=== PATIENT | female | born 1985 | race African-American/Black ===

== ENCOUNTER 2021-06-14 09:39 | Emergency (ER) | payer OTHER, SELFPAY ==
--- NOTE | 2021-06-14 09:45 | ED.DENTAL ---
HPI - Dental/Oral General Chief complaint: Dental/Oral Stated complaint: gum sore Time Seen by Provider: 06/14/21 10:00 Source: patient Mode of arrival: ambulatory Limitations: no limitations History of Present Illness HPI Narrative: 36-year-old female presents concern for dental pain. She reports front tooth is loose, with sore surrounding gumline and pain below her nose. She reports symptoms worsened yesterday. Reports she has been wearing a partial denture around that tooth and it has been getting loose for some time. She denies fever, difficulty swallowing, nausea or vomiting. Reports she is trying to find a dentist take her insurance. MD Complaint: tooth pain Location: Tooth # (9) Severity scale (1-10): 9 Related Data Home Medications Medication Instructions Recorded Confirmed cetirizine 10 mg PO DAILY 06/14/21 06/14/21 ergocalciferol (vitamin D2) 1,250 mcg PO WEEKLY 06/14/21 06/14/21 fluoxetine 20 mg PO DAILY 06/14/21 06/14/21 fluticasone propionate 50 mcg INTRANASAL DAILY 06/14/21 06/14/21 montelukast 10 mg PO DAILY 06/14/21 06/14/21 sertraline 50 mg PO DAILY 06/14/21 06/14/21 Allergies Allergy/AdvReac Type Severity Reaction Status Date / Time No Known Allergies Allergy Verified 06/14/21 09:59 Review of Systems Review of Systems: CONSTITUTIONAL: Denies malaise, chills, sweats, or fever. EYES: Denies visual changes ENT: Denies rhinorrhea, congestion, sinus pain, otalgia or sore throat. Reports top frontal dental pain and gum swelling CARDIOVASCULAR: Denies chest pain, palpitations RESPIRATORY: Denies cough or dyspnea. SKIN: Denies rash or itching. MUSCULOSKELETAL: Denies myalgia. NEUROLOGIC: Denies numbness, weakness, or headache. All systems reviewed & are unremarkable except as noted in HPI and below PMFSH Comments At time of signature, agree with nursing past medical, surgical, social and family history. There is no relevant family history pertinent to the presenting complaint Exam Narrative: GENERAL: Well-appearing, well-nourished, and in no acute distress. HEAD: Normocephalic, atraumatic. EYES: PERRLA, sclera clear ENT: Nares clear, turbinates pink, no rhinorrhea or epistaxis. Mucous membranes moist. Oropharynx without erythema or lesions. Tonsils not enlarged and without exudate. Top front missing teeth, no broken teeth. Tooth #9 loose with gingival erythema NECK: Supple. No lymphadenopathy. CHEST: No respiratory distress. Speaks in full sentences. HEART: Regular rate and rhythm. SKIN: Warm, dry, no visible rash. NEURO: Alert and oriented x3. PSYCH: Normal mood and affect Course Course Emergency Course: Patient is aware of diagnosis, understands and agrees to treatment plan. Anticipatory guidance given. Patient agrees to follow-up as directed and is aware of reasons to seek care at the emergency department. Portions of this record may have been created with voice recognition software Level of Care: Express Care Visit Vital Signs Vital signs: Reviewed. MDM - Dental/Oral MDM Narrative Medical decision making narrative: Patients pain and complaint coupled with physical findings are consistant with dentalgia. There are no focal signs of space occupying lesions that are compromising to the airway; no dysphagia, odynophagia, dysphonia, or dyspnea. No uvular deviation or soft palate edema. Patient is non-toxic appearing. The floor of the mouth is soft with no signs of Rudolph's Angina; no induration below mandible, no neck pain. Patient is without trismus or drooling and able to swallow secretions. Patient is felt appropriate for discharge home with dental follow up. Differential Diagnosis Differential diagnosis: Likely gingival abscess, dental caries, toothache, dental abscess, fracture of tooth and aphthous ulcer Critical Care Time Critical Care Time Critical Care Time: No Discharge Plan Discharge Clinical Impression: Dental abscess Patient Disposition: Home, Self-Care Condit
[2021-06-14 09:53] VITALS: BP 145/92; PULSE 119; RESP 16; TEMP 36.5; O2SAT 99
== END 2021-06-14 10:13 | disposition home or self-care (01) ==
PROVIDERS: Emergency Provider Nurse Practitioner; PCP Family Medicine
DX: K04.7 Periapical abscess without sinus (principal); F41.9 Anxiety disorder, unspecified; F32.A Depression, unspecified
CPT/HCPCS: 99213; G0463

== ENCOUNTER 2021-08-26 13:57 | Inpatient (IN) | payer OTHER, SELFPAY ==
[2021-08-26] VITALS (15 sets, daily range): BP systolic 116–154; BP diastolic 68–96; PULSE 74–111; RESP 14–18; TEMP 36.3–37.2; O2SAT 97–100; BMI 23.3
--- NOTE | ~2021-08-26 | CT_ITS ---
EXAMINATION: CT abdomen pelvis w con DATE: 08/26/2021 15:53 INDICATION: Right flank pain TECHNIQUE: Computed tomography (CT) of the abdomen and pelvis was performed with 95 mL Omnipaque-300 intravenous contrast. Automated exposure control and iterative reconstruction technique were employed . The dose-length product was 171.15 mGy-cm. COMPARISON: None FINDINGS: Lung bases are clear. Heart size is normal. No pericardial or pleural effusion. Liver, gallbladder, s pleen, pancreas, bilateral adrenal glands and left kidney are normal. There is thickened enhancing ur othelium at the right renal pelvis consistent with ascending urinary tract infection. There is a smal l ill-defined region of subtle decreased enhancement at the upper pole of the left kidney suspicious for early pyelonephritis. There is diffuse wall thickening of the bladder suggestive of associated cy stitis. Anteverted uterus and left adnexa are unremarkable. 1.5 cm peripherally enhancing likely yuriy us luteum cyst at the right ovary. Moderate to large amount of stool scattered throughout the colon. Small bowel and appendix are normal. No free intraperitoneal gas or fluid. No pathologically enlarged abdominal or pelvic lymphadenopathy. Bones are unremarkable. IMPRESSION: 1. Conscious sedation findings consistent with ascending urinary tract infection clearing cystitis, r ight pyelitis and likely early right pyelonephritis. Reviewed, dictated and finalized at location B. IMPRESSION: 1. Conscious sedation findings consistent with ascending urinary tract infectio n clearing cystitis, right pyelitis and likely early right pyelonephritis.
[2021-08-26 14:30] LABS: Basophils Percent Auto 0.2 % (0.2-1.2); Eosinophils Percent Auto 0.4 % (0-4.4); Hematocrit 42.7 % (37.0-47.0); Hemoglobin 13.9 g/dL (12.0-15.0); Immature Granulocyte Absolute 0.02 K/mm3 (0.00-0.031); Immature Granulocyte Percent A 0.2 % (0-0.5); Lymphocytes Percent Auto 32.3 % (18.3-44.2); Mean Corpuscular HGB Conc 32.6 g/dl (32-36); Mean Corpuscular Hemoglobin 28.6 pg (26-34); Mean Corpuscular Volume 87.9 fl (80-100); Mean Platelet Volume 10.2 fl (7.4-10.4); Monocytes Absolute Auto 0.5 K/mm3 (0.1-0.6); Monocytes Percent Auto 4.9 % (2.6-8.5); Neutrophils Absolute Auto 5.8 K/mm3 (1.3-6.7); Platelet Count Result 231 k/mm3 (150-375); Red Blood Count 4.86 M/mm3 (4.2-5.4); White Blood Count 9.3 K/mm3 (4.5-10.0)
[2021-08-26 14:39] LABS: Alanine Aminotransferase 14 U/L (6-35); Albumin Level 4.5 g/dL (3.5-5.1); Alkaline Phosphatase 92 U/L (38-126); Anion Gap 7 mmol/L (8-16); Aspartate Amino Transferase 22 U/L (14-36); Bilirubin,Total 0.4 mg/dL (0.2-1.3); Blood Urea Nitrogen 8 mg/dL (7-17); Calcium 8.8 mg/dL (8.4-10.2); Carbon Dioxide 28 mmol/L (22-30); Chloride 104 mmol/L (98-107); Estimated CRCL calculation 59 ml/min; Estimated Glomerular Filt Rate > 60; Glucose 91 mg/dL (65-110); Potassium 4.4 mmol/L (3.4-5.0); Sodium 139 mmol/L (137-145)
[2021-08-26 14:42] LABS: Appearance Urine Clear (Clear); Bilirubin Urine Negative (Negative); Blood Urine 2+ (Negative); Glucose Urine UA Negative (Negative); Ketones Urine Negative (Negative); Leukocyte Esterase Ur 1+ LEU/UL (Negative); Nitrate Urine Negative (Negative); Protein Urine 1+ mg/dL (Negative); Urobilinogen Urine 0.2 mg/dL (<2.0); pH Urine 6.5 (5.0-9.0)
[2021-08-26 14:47] LABS: Bacteria Urine Trace /hpf; Squamous Epithelial Cell Urine Few /hpf (Few)
[2021-08-26 14:49] LABS: Add Urine Microscopic? YES; Color Urine Light Yellow (Yellow)
[2021-08-26 15:01] LABS: Lipase 149 U/L (23-300)
[2021-08-26] MEDS: KETOROLAC 30 MG/ML VIAL (*BKC) IV PUSH (15:10)
[2021-08-26] MEDS: SODIUM CHLORIDE 0.9% IV 1,000 ML 999 ML IV CONT ×2 (15:10→17:10)
[2021-08-26] MEDS: MORPHINE SULFATE (*CRX) 2 MG/ML INJ IV PUSH ×2 (17:10→22:24)
[2021-08-26 17:57] LABS: Lactic Acid Reflex 0.7 mmol/L (0.7-2.0)
--- NOTE | 2021-08-26 19:10 | ED.GENADULT ---
HPI - General Adult General Chief complaint: Back Pain/Injury Stated complaint: UTI, Pain up Into chest and throat Time Seen by Provider: 08/26/21 14:24 Source: RN notes reviewed History of Present Illness HPI narrative: Patient presents emergency room from home for right-sided flank pain. Patient states symptoms again approximately 4 days ago. States she has had right-sided pain that radiates around the right side of the abdomen described as sharp and stabbing. Patient states it feels like she has a urinary tract infection but denies any dysuria or frequency she has any fevers or chills chest pain shortness of breath vomiting diarrhea or any other symptoms. States she not taking medication for the symptoms at home Related Data Home Medications Medication Instructions Recorded Confirmed cetirizine 10 mg tablet 10 mg PO DAILY 06/14/21 06/14/21 ergocalciferol (vitamin D2) 1,250 1,250 mcg PO WEEKLY 06/14/21 06/14/21 mcg (50,000 unit) capsule fluoxetine 20 mg capsule 20 mg PO DAILY 06/14/21 06/14/21 fluticasone propionate 50 50 mcg intranasal DAILY 06/14/21 06/14/21 mcg/actuation nasal spray,suspension montelukast 10 mg tablet 10 mg PO DAILY 06/14/21 06/14/21 sertraline 50 mg tablet 50 mg PO DAILY 06/14/21 06/14/21 Allergies Allergy/AdvReac Type Severity Reaction Status Date / Time No Known Allergies Allergy Verified 06/14/21 09:59 Review of Systems Review of Systems: Gen.: Denies fevers or chills ENT: Denies congestion Respiratory: Denies shortness of breath or cough CV: Denies chest pain or palpitations GI: See HPI denies burning, urgency, frequency or hematuria Musculoskeletal: Denies back pain or muscle pain Neuro: Denies numbness, tingling, weakness or focal weakness Skin: Denies rash Except as documented, all other systems reviewed and negative [facility] Past Medical History Medical History (Updated 08/26/21 @ 19:12 by Chester Son DO) Patient denies significant medical history Social History Social History (Updated 08/26/21 @ 19:11 by Chester Son DO) Smoking status: Never smoker Exam Narrative: APPEARANCE: No acute distress, nontoxic, resting in bed HEENT: Normocephalic, atraumatic, OMM RESPIRATORY: No respiratory distress, clear to auscultation bilaterally with no rhonchi wheezing or rales CARDIOVASCULAR: RRR s murmur ABDOMINAL: Soft nondistended tender palpation right upper quadrant right lower quadrant no tenderness in left upper quadrant left lower quadrant no rebound or guarding, right flank tenderness MUSCULOSKELETAl: Moves all extremities. No clubbing, cyanosis or edema. NEURO: Awake and alert. Following commands, speech normal, no focal deficits SKIN:: Warm, dry. Normal Color PSYCHIATRIC: Normal affect/mood Course Course Emergency Course: Patient continued to have pain in the right flank will admit at this time Discussed with ARCHITECTURAL ENGINEER Angelica for Dr. Gr agrees with admission Discussed with patient and family results of workup and diagnosis. Discussed need for admission. Patient and family understand and agree to current treatment plan Vital Signs Vital signs: Vital Signs Temperature 98.1 F 08/26/21 14:08 Pulse Rate 111 H 08/26/21 14:08 Respiratory Rate 16 08/26/21 14:08 Blood Pressure 154/91 H 08/26/21 14:08 Pulse Oximetry 100 08/26/21 14:08 Oxygen Delivery Room Air 08/26/21 14:08 Temperature 97.3 F L 08/26/21 18:30 Pulse Rate 74 08/26/21 18:30 Respiratory Rate 16 08/26/21 18:30 Blood Pressure 126/74 08/26/21 18:30 Pulse Oximetry 98 08/26/21 18:30 Oxygen Delivery Room Air 08/26/21 14:08 Medical Decision Making Vital Signs Vital Signs: Vital Signs Temperature 98.1 F 08/26/21 14:08 Pulse Rate 111 H 08/26/21 14:08 Respiratory Rate 16 08/26/21 14:08 Blood Pressure 154/91 H 08/26/21 14:08 Pulse Oximetry 100 08/26/21 14:08 Oxygen Delivery Room Air 08/26/21 14:08 Temperature 97.3 F L
--- NOTE | 2021-08-26 22:05 | PM.IMHP ---
H&P: HPI History of Present Illness Date/Time: Patient was placed observation status for expected length of stay less than 23 hours for management, will plan to re-evaluate tomorrow for improvement. 08/26/21 22:05 Chief Complaint: Right flank pain Narrative: Ms. Rowell is a 36-year-old female who presented to the emergency room with complaints of right flank pain that started on Tuesday. Patient states that last she noticed that she was urinating more frequently than normal, but did not think anything of it. Patient denied any dysuria, hematuria, urgency, fever, or chills. Patient denies any nausea or vomiting. Patient states that she decided come to the emergency room today because the right flank pain became so intense that she could no longer take it. Upon evaluation in emergency room patient was noted to have a urinary tract infection and CT scan showed possible early pyelonephritis. Patient states she does have a known history of depression and insomnia. Patient states that her primary care provider recently discontinued her antidepressant medication. Review of Systems Review of Systems: A 12 point review of systems was completed patient all pertinent positive and negative per HPI the remainder are unremarkable. PMFSH Past Medical History Medical History (Updated 08/26/21 @ 22:46 by Angelica Joseph APRN) Depression Insomnia Surgical History Surgical History (Updated 08/26/21 @ 22:46 by Angelica Joseph APRN) No pertinent past surgical history Family History Family History (Updated 08/26/21 @ 20:38 by Nikole Galarza RN) Other Unknown family medical history Social History Social History (Updated 08/26/21 @ 22:47 by Angelica Joseph APRN) Smoking packs per day: 0.75 Smoking cigarettes per day: 15.0 Smoking status: Current every day smoker Second hand tobacco smoke exposure: No Alcohol intake: never Substance use: never Spiritual care concerns: No Meds Home Medications and Allergies Home Medications Medication Instructions Recorded Confirmed Type zolpidem 10 mg tablet 10 mg PO HS PRN Insomnia 08/26/21 08/26/21 History Allergies Allergy/AdvReac Type Severity Reaction Status Date / Time No Known Allergies Allergy Verified 06/14/21 09:59 Vital Signs Vital Signs - 24 hr 08/26/21 14:08 08/26/21 14:59 08/26/21 14:29 Temperature 36.7 C 36.8 C Pulse Rate 111 H 107 H Respiratory Rate 16 18 Blood Pressure 154/91 H 118/76 Pulse Oximetry 100 100 97 Oxygen Delivery Room Air 08/26/21 14:30 08/26/21 14:45 08/26/21 15:00 Temperature Pulse Rate Respiratory Rate Blood Pressure Pulse Oximetry 100 99 100 Oxygen Delivery 08/26/21 15:15 08/26/21 15:26 08/26/21 15:30 Temperature Pulse Rate 82 Respiratory Rate 14 Blood Pressure 132/96 H Pulse Oximetry 100 99 100 Oxygen Delivery 08/26/21 15:31 08/26/21 16:38 08/26/21 17:30 Temperature 36.8 C 36.3 C L Pulse Rate 76 76 Respiratory Rate 16 16 Blood Pressure 128/87 118/68 126/80 Pulse Oximetry 100 100 98 Oxygen Delivery 08/26/21 18:30 08/26/21 19:35 08/26/21 20:30 Temperature 36.3 C L 36.8 C 37.2 C Pulse Rate 74 96 104 H Respiratory Rate 16 16 16 Blood Pressure 126/74 116/70 127/93 H Pulse Oximetry 98 100 100 Oxygen Delivery Exam Narrative: Constitutional: Patient is well-nourished in no acute distress. Patient is alert and oriented x3 HEENT: Moist mucous membranes. No scleral icterus. No lymphadenopathy. Neck: No carotid bruits noted no JVD noted Lungs: Lung sounds are clear to auscultation bilaterally. No accessory muscle use. No rhonchi, rales, or wheezes noted. Cardiovascular: Apical pulse is regular rate and rhythm. S1-S2 noted, no S3 or S4 noted. No gallops, murmurs, or rubs noted. Abdomen: Soft, round, and nontender. No palpable masses. Back: Patient complains of CVA tenderness to the right side with palpation.
[2021-08-26] MEDS: ZOLPIDEM TARTRATE (*CRX) 5 MG TABLET 10 MG PO (22:23)
[2021-08-26] MEDS: SODIUM CHLORIDE 0.9% IV 1,000 ML 125 ML IV CONT (22:24)
[2021-08-27] MEDS: MORPHINE SULFATE (*CRX) 2 MG/ML INJ IV PUSH ×4 (02:31→22:33)
[2021-08-27] MEDS: SODIUM CHLORIDE 0.9% IV 1,000 ML 125 ML IV CONT (05:33)
[2021-08-27 06:00] VITALS: BP 132/90; PULSE 98; RESP 18; TEMP 36.8; O2SAT 99
[2021-08-27 07:18] LABS: Basophils Percent Auto 0.3 % (0.2-1.2); Eosinophils Absolute Auto 0.1 K/mm3 (0-0.3); Eosinophils Percent Auto 1.4 % (0-4.4); Hematocrit 32.4 % (37.0-47.0); Hemoglobin 10.6 g/dL (12.0-15.0); Immature Granulocyte Absolute 0.03 K/mm3 (0.00-0.031); Immature Granulocyte Percent A 0.4 % (0-0.5); Lymphocytes Absolute Auto 2.34 K/mm3 (0.9-3.2); Lymphocytes Percent Auto 29.8 % (18.3-44.2); Mean Corpuscular HGB Conc 32.7 g/dl (32-36); Mean Corpuscular Hemoglobin 28.6 pg (26-34); Mean Corpuscular Volume 87.3 fl (80-100); Mean Platelet Volume 10.7 fl (7.4-10.4); Monocytes Absolute Auto 0.4 K/mm3 (0.1-0.6); Monocytes Percent Auto 5.6 % (2.6-8.5); Neutrophils Absolute Auto 4.9 K/mm3 (1.3-6.7); Neutrophils Percent Auto 62.5 % (45.5-73.1); Platelet Count Result 180 k/mm3 (150-375); Red Blood Count 3.71 M/mm3 (4.2-5.4); Red Cell Distribution Width 14.9 % (11.5-14.5); White Blood Count 7.9 K/mm3 (4.5-10.0)
[2021-08-27 07:30] LABS: Alanine Aminotransferase 12 U/L (6-35); Albumin Level 3.3 g/dL (3.5-5.1); Alkaline Phosphatase 73 U/L (38-126); Anion Gap 3 mmol/L (8-16); Aspartate Amino Transferase 21 U/L (14-36); Bilirubin,Total 0.4 mg/dL (0.2-1.3); Blood Urea Nitrogen 6 mg/dL (7-17); Calcium 7.3 mg/dL (8.4-10.2); Carbon Dioxide 26 mmol/L (22-30); Chloride 106 mmol/L (98-107); Estimated Glomerular Filt Rate > 60; Glucose 82 mg/dL (65-110); Potassium 3.6 mmol/L (3.4-5.0); Sodium 135 mmol/L (137-145)
[2021-08-27] MEDS: KETOROLAC 30 MG/ML VIAL (*BKC) IV PUSH (09:57)
--- NOTE | 2021-08-27 12:02 | PM.IMPN ---
Progress Note: A&P Assessment and Plan (1) Pyelonephritis of right kidney: Code(s): N12 - Tubulo-interstitial nephritis, not specified as acute or chronic Status: Acute Assessment and Plan: Presented with right flank pain after struggling with urinary frequency for 1 week prior to presentation UA abnormal on presentation with 1+ leuk esterase and 10-[address] of the abdomen/pelvis reveal constellation of findings consistent with ascending urinary tract infection, right-sided pyelonephritis Urine culture is pending Preliminary blood cultures negative to date Continue with IV Rocephin. Await final culture results and tailor antibiotics accordingly Supportive care. Analgesics available as needed Discontinue IV fluids as patient has been adequately rehydrated and is tolerating p.o. intake (2) Tobacco abuse: Code(s): Z72.0 - Tobacco use Status: Acute Assessment and Plan: Patient reports smoking 15 cigarettes per day Nicotine patch per patient request Patient is motivated to quit smoking. Educated patient on need for cessation for 3 minutes. Subjective Date/time seen: 08/27/21 12:02 Interval history: Date of service: 08/27/2021 Eula Rowell is a 36-year-old female with a history of insomnia and depression who is seen in follow-up for right-sided pyelonephritis. She is feeling improved today. She continues to endorse pretty significant right back and flank pain. She states it starts in her right middle back and comes around the side down to the suprapubic region. This morning her pain was a 10/10 but after taking some pain medication and has improved to a 7/10. Her pain gets worse if she takes a deep breath or if she twists her trunk to adjust in bed. She has been taking more shallow breath to try to avoid having increased pain. Denies dysuria or hematuria. Denies nausea, vomiting, fevers, chills, sweats. She does have some abdominal discomfort but states that she feels like she needs to have a bowel movement. She admits to smoking about 15 cigarettes per day and she is endorsing cigarette cravings. She would like to try nicotine patch. She states she would like to quit smoking. She denies chest pain, palpitations, dizziness, lightheadedness, or weakness. She feels a bit swollen in her hands and fingers. She denies swelling or discomfort of her lower extremities. She states she has been eating and drinking well. Review of Systems Review of Systems: All systems reviewed & are unremarkable except as noted in HPI and below Exam Narrative: General: Thin, well-appearing 36-year-old female, semi recumbent in bed, comfortable, NARD Neuro: awake, alert and oriented x4, speech clear, no focal neuro deficits noted HEENMT: normocephalic, atraumatic, EOMI, sclerae anicteric, moist oral mucosa Respiratory: clear to auscultation bilaterally, nonlabored breathing Cardio: regular rate, regular rhythm with S1-S2 Abdomen: nondistended, normoactive bowel sounds, soft, nontender to palpation : Right flank exquisitely tender to palpation, no CVA tenderness Extremities: no edema, erythema, or tenderness to palpation, DP pulses 2+ bilaterally Skin: no rashes or lesions, warm and dry Psych: appropriate mood and affect, judgment and insight intact Objective Data Vital Signs Vital Signs: Vital Signs - 24 hr 08/26/21 14:08 08/26/21 14:59 08/26/21 14:29 Temperature 98.1 F 98.3 F Pulse Rate 111 H 107 H Respiratory Rate 16 18 Blood Pressure 154/91 H 118/76 Pulse Oximetry 100 100 97 Oxygen Delivery Room Air 08/26/21 14:30 08/26/21 14:45 08/26/21 15:00 Temperature Pulse Rate Respiratory Rate Blood Pressure Pulse Oximetry 100 99 100 Oxygen Delivery 08/26/21 15:15 08/26/21 15:26 08/26/21 15:30 Temperature Pulse Rate 82 Respiratory Rate 14 Blood Pressure 132/96 H Pulse Oximetry 100 99 100 Oxygen Delivery 08/26/21 15:31 08/26/21 16
[2021-08-27] MEDS: HYDROcodone/acetaminophen (*CRX) 5-325 MG TABLET 1 TAB PO ×2 (12:49→18:48)
[2021-08-27] MEDS: ACETAMINOPHEN 325 MG TABLET 650 MG PO ×2 (12:50→18:16)
--- NOTE | 2021-08-27 13:23 | PCCCNOTE ---
On 08/27/21, the student, [Tiffanie Mensah], provided care and completed [facility] documentation on this patient. I have reviewed the student's documentation and agree with the findings.
[2021-08-27 14:00] VITALS: BP 138/86; PULSE 88; RESP 16; TEMP 37.1; O2SAT 99
[2021-08-27 19:31] VITALS: O2SAT 93
[2021-08-27 22:00] VITALS: BP 150/92; PULSE 77; RESP 16; TEMP 36.4; O2SAT 99
[2021-08-27] MEDS: ZOLPIDEM TARTRATE (*CRX) 5 MG TABLET 10 MG PO (22:33)
[2021-08-28 05:34] LABS: Hematocrit 35.2 % (37.0-47.0); Hemoglobin 11.5 g/dL (12.0-15.0); Mean Corpuscular HGB Conc 32.7 g/dl (32-36); Mean Corpuscular Hemoglobin 28.8 pg (26-34); Mean Platelet Volume 10.3 fl (7.4-10.4); Platelet Count Result 202 k/mm3 (150-375); Red Cell Distribution Width 14.6 % (11.5-14.5); White Blood Count 5.9 K/mm3 (4.5-10.0)
[2021-08-28 05:45] LABS: Anion Gap 4 mmol/L (8-16); Blood Urea Nitrogen 4 mg/dL (7-17); Calcium 8.6 mg/dL (8.4-10.2); Carbon Dioxide 27 mmol/L (22-30); Chloride 105 mmol/L (98-107); Estimated Glomerular Filt Rate > 60; Glucose 101 mg/dL (65-110); Potassium 3.7 mmol/L (3.4-5.0); Sodium 136 mmol/L (137-145)
[2021-08-28 05:55] VITALS: PULSE 94; RESP 16; TEMP 36.1; O2SAT 96
[2021-08-28] MEDS: HYDROcodone/acetaminophen (*CRX) 5-325 MG TABLET 1 TAB PO ×2 (08:59→14:53)
[2021-08-28] MEDS: NICOTINE (*PBKC) 21 MG PATCH 1 PATCH TRANSDERM (09:02)
[2021-08-28] MEDS: ACETAMINOPHEN 325 MG TABLET 650 MG PO ×2 (11:42→22:53)
[2021-08-28 14:00] VITALS: BP 156/99; PULSE 84; RESP 16; TEMP 36.1; O2SAT 100
--- NOTE | 2021-08-28 14:48 | PCCCNOTE ---
On 08/28/21, the student, [Antonietta Mensah], provided care and completed [facility] documentation on this patient. I have reviewed the student's documentation and agree with the findings.
--- NOTE | 2021-08-28 14:49 | PM.IMPN ---
Progress Note: A&P Assessment and Plan (1) Pyelonephritis of right kidney: Code(s): N12 - Tubulo-interstitial nephritis, not specified as acute or chronic Status: Acute Assessment and Plan: Presented with right flank pain after struggling with urinary frequency for 1 week prior to presentation UA abnormal on presentation with 1+ leuk esterase and 10-[address] of the abdomen/pelvis revealed constellation of findings consistent with ascending urinary tract infection, right-sided pyelonephritis Urine culture with growth of >100k E coli and >100k group B strep Preliminary blood cultures negative to date Continue with IV Rocephin based on susceptibility reports Supportive care. Analgesics available as needed. Discussed limiting IV analgesics today with hope for discharge soon if pain remains controlled (2) Tobacco abuse: Code(s): Z72.0 - Tobacco use Status: Acute Assessment and Plan: Patient reports smoking 15 cigarettes per day Nicotine patch per patient request Patient is motivated to quit smoking. Education provided. Continue to reinforce smoking cessation Subjective Date/time seen: 08/28/21 14:49 Interval history: Date of service: 08/28/2021 Eula Rowell is a 36-year-old female with a history of insomnia and depression who is seen in follow-up for right-sided pyelonephritis. She is feeling okay today. Overall she states her pain is improved. She complains of 4/10 back pain and 7/10 right flank pain that goes down to the suprapubic region. She continues to endorse urinary frequency. She denies dysuria or hematuria. States her urine has become more light in color as it was previously dark. She has been having regular bowel movements. Denies diarrhea. Denies nausea, vomiting, fever, or chills. No shortness breath, cough, or chest pain. She has been able to ambulate without difficulty. Denies dizziness or lightheadedness. Review of Systems Review of Systems: All systems reviewed & are unremarkable except as noted in HPI and below Exam Narrative: General: Thin, well-appearing 36-year-old female, semi recumbent in bed, comfortable, NARD Neuro: awake, alert and oriented x4, speech clear, no focal neuro deficits noted HEENMT: normocephalic, atraumatic, EOMI, sclerae anicteric, moist oral mucosa Respiratory: clear to auscultation bilaterally, nonlabored breathing Cardio: regular rate, regular rhythm with S1-S2 Abdomen: nondistended, normoactive bowel sounds, soft, nontender to palpation : Right flank moderately tender to palpation, no CVA tenderness Extremities: no edema, erythema, or tenderness to palpation, DP pulses 2+ bilaterally Skin: no rashes or lesions, warm and dry Psych: appropriate mood and affect, judgment and insight intact Objective Data Vital Signs Vital Signs: Vital Signs - 24 hr 08/27/21 19:31 08/27/21 22:00 08/28/21 05:55 Temperature 97.5 F L 96.9 F L Pulse Rate 77 94 Respiratory Rate 16 16 Blood Pressure 150/92 H Pulse Oximetry 93 99 96 Oxygen Delivery Room Air Intake/Output Intake/Output: Intake & Output 08/25/21 08/26/21 08/27/21 08/28/21 23:59 23:59 23:59 23:59 Intake Total 2150 2740 1040 Output Total 2800 Balance 2150 -60 1040 Meds/Results Medications: Active Medications Generic Name Dose Route Start Last Admin Trade Name Samsonq PRN Reason Stop Dose Admin Acetaminophen 650 mg 08/27/21 12:00 08/28/21 11:42 Acetaminophen 325 Mg Tablet PO 650 mg Q6H CELESTINO Administration Hydrocodone Bitart/Acetaminophen 1 tab 08/27/21 11:50 08/28/21 08:59 Hydrocodone/Acetaminophen (*Crx) 5-325 Mg Tablet PO 1 tab Q6H PRN Administration Pain Rated 4-6 Ceftriaxone Sodium/Dextrose 1 gm in 50 mls @ 100 mls/hr 08/27/21 14:00 08/28/21 14:48 Rocephin 1 Gm/D5w 50 Ml IVPB Infused Q24H CELESTINO Infusion Morphine Sulfate 1 mg 08/28/21 08:37 Morphine Sulfate (*Crx) 2 Mg/Ml Inj IV PUSH
[2021-08-28 22:00] VITALS: BP 169/101; PULSE 90; RESP 16; TEMP 37.1; O2SAT 100
[2021-08-28] MEDS: ZOLPIDEM TARTRATE (*CRX) 5 MG TABLET 10 MG PO (22:53)
[2021-08-29 05:24] VITALS: BP 138/100; PULSE 84; RESP 16; TEMP 36.1; O2SAT 100
[2021-08-29 06:30] LABS: Hematocrit 41.7 % (37.0-47.0); Mean Corpuscular HGB Conc 33.6 g/dl (32-36); Mean Corpuscular Hemoglobin 28.7 pg (26-34); Mean Corpuscular Volume 85.6 fl (80-100); Mean Platelet Volume 10.6 fl (7.4-10.4); Platelet Count Result 244 k/mm3 (150-375); Red Blood Count 4.87 M/mm3 (4.2-5.4); Red Cell Distribution Width 14.6 % (11.5-14.5); White Blood Count 5.2 K/mm3 (4.5-10.0)
[2021-08-29 06:47] LABS: Anion Gap 6 mmol/L (8-16); Blood Urea Nitrogen 4 mg/dL (7-17); Carbon Dioxide 29 mmol/L (22-30); Chloride 102 mmol/L (98-107); Estimated Glomerular Filt Rate > 60; Glucose 110 mg/dL (65-110); Potassium 3.7 mmol/L (3.4-5.0); Sodium 137 mmol/L (137-145)
[2021-08-29] MEDS: NICOTINE (*PBKC) 21 MG PATCH 1 PATCH TRANSDERM (08:20)
[2021-08-29 08:30] VITALS: BP 131/97
[2021-08-29] MEDS: HYDROcodone/acetaminophen (*CRX) 5-325 MG TABLET 1 TAB PO (08:30)
[2021-08-29] MEDS: AMOXICILLIN/CLAVULANATE K 875-125 MG TAB 1 TABLET PO (10:11)
[2021-08-29] MEDS: ACETAMINOPHEN 325 MG TABLET 650 MG PO (11:28)
--- NOTE | 2021-08-29 12:58 | PM.DS ---
DS: Admitting Diagnosis Discharge Date 08/29/2021 Admitting Diagnosis Pyelonephritis DS: Discharge Diagnosis Discharge Diagnosis (1) Pyelonephritis of right kidney: Code(s): N12 - Tubulo-interstitial nephritis, not specified as acute or chronic Status: Acute Assessment and Plan: Presented with right flank pain after struggling with urinary frequency for 1 week prior to presentation UA abnormal on presentation with 1+ leuk esterase and 10-[address] of the abdomen/pelvis revealed constellation of findings consistent with ascending urinary tract infection, right-sided pyelonephritis Urine culture with growth of >100k E coli and >100k group B strep Preliminary blood cultures negative to date. Final cultures will be monitored Received IV Rocephin during admission which was appropriate based on susceptibility reports Will continue p.o. Augmentin to complete a total of 10 days of antibiotic therapy Supportive care. Analgesics available as needed. (2) Tobacco abuse: Code(s): Z72.0 - Tobacco use Status: Acute Assessment and Plan: Patient reports smoking 15 cigarettes per day Nicotine patch provided during admission per patient request Patient is motivated to quit smoking. Educated on smoking cessation for 5 minutes. (3) Elevated blood pressure reading: Code(s): R03.0 - Elevated blood-pressure reading, without diagnosis of hypertension Status: Acute Assessment and Plan: Suspect worsened due to pain/anxiety BP at time of discharge was 124/74 Instructed to monitor BP at home and record for PCP review DS: Summary Hospital Course Hospital Course: Date of admission: 08/26/2021 Date of discharge: 08/28/2021 uEla Rowell is a 36-year-old female with a history of insomnia and depression who presented to the emergency department on 08/26/2021 with complaints of right-sided flank pain ongoing for about 4 days. Prior to that, she had been experiencing urinary frequency several days prior to presentation but did not think much of it did not seek evaluation. On presentation to the ED, she was tachycardic, additional vital signs were stable, CBC and BMP unremarkable, urinalysis abnormal, consistent with UTI, and CT of the abdomen/pelvis showed constellation of findings consistent with likely early right pyelonephritis. She was admitted to the hospitalist service for further evaluation and management. Please see above for further details. She was treated with IV antibiotics and had clinical improvement. Her pain improved. She began feeling much better and requested discharge home. Given the patient's overall improvement, she was determined to no longer require inpatient care and was discharged in hemodynamically stable condition. She will continue taking oral antibiotics to complete a total of 10 days of antibiotic therapy. Discussed with the patient worrisome signs and symptoms for which to return and she was educated on her medications. Her blood pressure was elevated at times, which was likely due to pain and anxiety regarding hospitalization. She has a blood pressure cuff at home and will monitor BP intermittently and review with PCP at hospital follow up appointment which she should schedule in 1 week. Status at Discharge Functional status at discharge: independent ambulation Overall status at discharge: patient is back to baseline Time Spent with Patient Time attestation: Total time spent providing and/or coordinating discharge services: 40 minutes Time spent: Greater than 30 minutes Exam Narrative: General: Thin, well-appearing 36-year-old female, semi recumbent in bed, comfortable, NARD Neuro: awake, alert and oriented x4, speech clear, no focal neuro deficits noted HEENMT: normocephalic, atraumatic, EOMI, sclerae anicteric, moist oral mucosa Respiratory: clear to auscultation bilaterally, nonlabored breathing Cardio: regular rate, regular rhythm wit
[2021-08-29 12:59] VITALS: BP 124/74
== END 2021-08-29 13:40 | disposition home or self-care (01) | DRG 463 ==
LOC: ANHED 19:12 → ANH3MEDSUR 19:56
PROVIDERS: Physician Assistant; Admitting Provider Student in an Organized Health Care Education/Training Program; Emergency Provider Emergency Medicine; PCP Family Medicine; Visit Provider Family Medicine
DX: N12 Tubulo-interstitial nephritis, not specified as acute or chronic (principal); B96.20 Unspecified Escherichia coli [E. coli] as the cause of diseases classified elsewhere; B95.1 Streptococcus, group B, as the cause of diseases classified elsewhere; R03.0 Elevated blood-pressure reading, without diagnosis of hypertension; F17.210 Nicotine dependence, cigarettes, uncomplicated; G47.00 Insomnia, unspecified; F32.A Depression, unspecified
CPT/HCPCS: 36415; 74177; 80048; 80053; 81001; 81025; 83605; 83690; 85025; 85027; 87040; 87077; 87086; 87147; 87181; 87186; 96361; 96365; 96367; 96375; 96376; 99285; A9270; G0378; G0379; J0131; J0696; J1885; J2270; J7030; Q9967